=== PATIENT | male | born 1935 | race Caucasian/White ===

== ENCOUNTER 2017-12-03 23:08 | Inpatient (IN) ==
[2017-12-03] MEDS ORDERED: DEXTROSE 50% 25 GM/50 ML SYRINGE IV ONE (23:18)
[2017-12-03] MEDS ORDERED: SODIUM CHLORIDE 0.9% 2,000 ML IV STA (23:25)
[2017-12-03] MEDS ORDERED: hydrALAZINE 20 MG/1 ML VIAL IV STA (23:44)
[2017-12-03] MEDS ORDERED: LABETALOL 20 MG/4 ML SYRINGE IV STA (23:44)
[2017-12-03] MEDS ORDERED: LABETALOL 20 MG/4 ML SYRINGE IV ONE (23:52)
[2017-12-03] MEDS ORDERED: hydrALAZINE 20 MG/1 ML VIAL ONE (23:52)
[2017-12-03 23:54] LABS: Basophils % 0.1 % (0.0-0.8); Hematocrit 34.5 VOL% (42.0-52.0); Hemoglobin 10.8 GM/DL (14.0-18.0); Immature Granulocytes % 1.2 %; Immature Granulocytes Absolute 0.21 #; Lymphocytes # 0.7 10*3/uL (1.4-4.0); Mean Corpuscular HGB Conc 31.3 GM/DL (32-36); Mean Corpuscular Hemoglobin 27 PG (27-34); Mean Platelet Volume 10.6 FL (9.6-12.0); Monocytes # 0.4 10*3/uL (0.11-0.8); Monocytes % 2.4 % (1.7-12.7); Neutrophils # 16.1 10*3/uL (1.4-7.4); Neutrophils % 92.3 % (38.7-73.9); Platelet Count 261 T/CUMM (130-400); Red Blood Count 4.06 MC/CUMM (3.8-5.5); Red Cell Distribution Width 16.5 % (9.3-17.3); White Blood Count 17.4 T/CUMM (4-12)
[2017-12-03 23:55] LABS: VBG Base Excess -8.2 MEQ/L (0-4); VBG HCO3 17.4 MEQ/L (24-28); VBG Oxygen Saturation 86.7 %; VBG PCO2 36.1 MMHG (41-51); VBG PH 7.302; VBG PO2 66.6 MMHG (17-40)
[2017-12-04 00:04] LABS: Apearance,Urine Slightly Hazy (Clear); Bacteria,Urine Occasional /HPF (Few); Bilirubin,Urine Negative (Negative); Blood, Urine Moderate mg/dL (Negative); Glucose,Urine (UA) 150 mg/dL (Negative); Hyaline Casts,Urine 1 /LPF (0-3); Ketones,Urine Negative (Negative); Mucus,Urine Occasional /LPF (Occasional); Nitrite,Urine Negative (Negative); PT Patient Result 10.8 SECS; Partial Thromboplastin Time 28.7 SECS (0-40); Protein,Urine >=500 MG/DL; RBC,Urine 12 /HPF (0-4); Squamous Epithelial Cell,Urine Occasional /HPF (0-10); Urine Color Yellow (Yellow); Urine Specific Gravity 1.016 (1.001-1.035); Urine Urobilinogen < 2.0 EU/DL (0.2-1.0); WBC,Urine 6 /HPF (0-6)
[2017-12-04 00:06] LABS: Barbiturates Screen,Urine Negative (Negative); Benzodiazepines Screen,Urine Negative (Negative); Cannabinoid Screen,Urine Negative (Negative); Opiate Screen,Urine Negative (Negative); Phencyclidine Screen,Urine Negative (Negative)
[2017-12-04 00:08] LABS: Ammonia 16 UMOL/L (11-32)
[2017-12-04 00:12] LABS: Band Neutrophils 1 % (0-10); Lymphocytes 4 % (20-55); Platelet Estimate Normal; Segmented Neutrophils 93 % (50-85); Total Cells Counted 100
[2017-12-04 00:13] LABS: Lactic Acid 3.1 MMOL/L (0.4-2.0)
[2017-12-04 00:14] LABS: Alanine Aminotransferase 20 U/L (16-61); Albumin 2.3 G/DL (3.4-5.0); Alkaline Phosphatase 85 U/L (45-117); Aspartate Amino Transferase 48 U/L (0-37); Bilirubin,Total < 0.39 MG/DL (0.2-1.0); Blood Urea Nitrogen 82 MG/DL (7-18); Glucose 61 MG/DL (74-106); Osmolality,Calculated 321.9 MOS/KG (273-304); Potassium 4.5 MMOL/L (3.5-5.1); Sodium 151 MMOL/L (136-145); Total Protein 6.2 G/DL (6.4-8.3); Troponin I Only 0.262 NG/ML (0.00-0.045)
[2017-12-04] MEDS ORDERED: CEFEPIME 2,000 MG in SODIUM CHLORIDE 0.9% 100 ML IV STA (00:23)
[2017-12-04] MEDS ORDERED: SODIUM CHLORIDE 0.9% 1,000 ML IV STA (00:23)
[2017-12-04] MEDS ORDERED: VANCOMYCIN INJ 1,000 MG in SODIUM CHLORIDE 0.9% 250 ML IV STA (00:24)
[2017-12-04] MEDS ORDERED: NOREPINEPHRINE 8 MG in SODIUM CHLORIDE 0.9% 242 ML IV SCH (01:00)
[2017-12-04] MEDS ORDERED: CEFEPIME 2,000 MG VIAL ONE (01:20)
[2017-12-04] MEDS ORDERED: VANCOMYCIN 1,000 MG VIAL ONE (01:21)
[2017-12-04] MEDS ORDERED: GLUCAGON 1 MG VIAL IM PRN ×2 (02:25)
[2017-12-04] MEDS ORDERED: ALBUTEROL 2.5 MG/3 ML NEB RESP TX PRN (02:25)
[2017-12-04] MEDS ORDERED: hydrALAZINE 20 MG/1 ML VIAL IV PRN (02:25)
[2017-12-04] MEDS ORDERED: ONDANSETRON 4 MG/2 ML VIAL IV PRN (02:25)
[2017-12-04] MEDS ORDERED: DEXTROSE 50% 25 GM/50 ML VIAL IV PRN ×2 (02:25)
[2017-12-04] MEDS ORDERED: SODIUM CHLORIDE 0.45% 1,000 ML IV SCH (02:30)
[2017-12-04] MEDS ORDERED: DEXTROSE 50% 25 GM/50 ML SYRINGE IV ONE (03:13)
[2017-12-04] MEDS ORDERED: ALBUTEROL/IPRATROPIUM 3 ML NEB RESP TX PRN (03:51)
[2017-12-04] MEDS ORDERED: FUROSEMIDE 40 MG/4 ML VIAL IV ONE (04:00)
[2017-12-04] MEDS: PANTOPRAZOLE 40 MG VIAL IV SCH (04:07)
[2017-12-04] MEDS: PIPERACILLIN/TAZOBACTAM 3,375 MG in SODIUM CHLORIDE 0.9% 100 ML IV SCH ×3 (04:07→18:23)
[2017-12-04 04:26] LABS: ABG Base Excess -8.3 MMOL/L (-2.5-2.5); ABG HCO3 17.7 MMOL/L (20-26); ABG PCO2 24.2 MM HG (35-48); ABG PH 7.407 (7.35-7.45); ABG PO2 65.5 MM HG (80-95); ABG TCO2 13.9 MMOL/L (23-27)
[2017-12-04] MEDS ORDERED: NOREPINEPHRINE 4 MG/4 ML VIAL IV ONE (06:01)
[2017-12-04] MEDS: DEXTROSE 10% 1,000 ML IV SCH (06:10)
[2017-12-04 07:09] LABS: Basophils % 0.1 % (0.0-0.8); Hematocrit 31.3 VOL% (42.0-52.0); Hemoglobin 10.3 GM/DL (14.0-18.0); Immature Granulocytes Absolute 0.15 #; Lymphocytes # 0.9 10*3/uL (1.4-4.0); Lymphocytes % 5.7 % (21.2-54.2); Mean Corpuscular HGB Conc 32.9 GM/DL (32-36); Mean Corpuscular Hemoglobin 27 PG (27-34); Mean Corpuscular Volume 82.4 FL (87-102); Mean Platelet Volume 10.3 FL (9.6-12.0); Monocytes # 0.5 10*3/uL (0.11-0.8); Neutrophils % 90.2 % (38.7-73.9); Platelet Count 178 T/CUMM (130-400); White Blood Count 15.5 T/CUMM (4-12)
[2017-12-04 07:43] LABS: Lactic Acid 1.6 MMOL/L (0.4-2.0)
[2017-12-04 07:44] LABS: Bilirubin,Total 0.5 MG/DL (0.2-1.0); Calcium 7.5 MG/DL (8.5-10.1); Osmolality,Calculated 321.9 MOS/KG (273-304); Potassium 4.2 MMOL/L (3.5-5.1); Total Protein 5.4 G/DL (6.4-8.3)
[2017-12-04 08:02] LABS: Troponin I Only 0.739 NG/ML (0.00-0.045)
[2017-12-04] MEDS: INSULIN REGULAR 100 UNIT/ML SUBCUT SCH ×4 (08:44→20:03)
[2017-12-04] MEDS: ENOXAPARIN 30 MG/0.3 ML SYRINGE SUBCUT SCH (09:48)
[2017-12-04 11:56] LABS: CKMB % 1.7 %
[2017-12-04 11:59] LABS: Troponin I Only 1.38 NG/ML (0.00-0.045)
[2017-12-04] MEDS: METOPROLOL SUCCINATE XL 25 MG TABLET PO SCH (16:57)
[2017-12-04] MEDS: ASPIRIN CHEW 81 MG TABLET PO SCH (17:39)
[2017-12-04] MEDS: amLODIPine 5 MG TABLET PO SCH (17:39)
[2017-12-05] MEDS: PANTOPRAZOLE 40 MG VIAL IV SCH (02:45)
[2017-12-05] MEDS: PIPERACILLIN/TAZOBACTAM 3,375 MG in SODIUM CHLORIDE 0.9% 100 ML IV SCH ×3 (02:48→18:17)
[2017-12-05 05:26] LABS: Basophils # 0.1 10*3/uL (0.0-0.2); Basophils % 0.4 % (0.0-0.8); Eosinophils # 0.1 10*3/uL (0.0-0.87); Eosinophils % 0.9 % (0.00-10.9); Hematocrit 31.4 VOL% (42.0-52.0); Hemoglobin 9.8 GM/DL (14.0-18.0); Immature Granulocytes % 0.8 %; Lymphocytes # 1.5 10*3/uL (1.4-4.0); Lymphocytes % 12.2 % (21.2-54.2); Mean Corpuscular HGB Conc 31.2 GM/DL (32-36); Mean Corpuscular Hemoglobin 27 PG (27-34); Mean Corpuscular Volume 85.6 FL (87-102); Mean Platelet Volume 9.8 FL (9.6-12.0); Monocytes # 0.7 10*3/uL (0.11-0.8); Monocytes % 6.2 % (1.7-12.7); Neutrophils # 9.5 10*3/uL (1.4-7.4); Neutrophils % 79.5 % (38.7-73.9); Platelet Count 173 T/CUMM (130-400); Red Blood Count 3.67 MC/CUMM (3.8-5.5); Red Cell Distribution Width 17.2 % (9.3-17.3)
[2017-12-05 05:59] LABS: Calcium 7.8 MG/DL (8.5-10.1); Osmolality,Calculated 328.6 MOS/KG (273-304); Potassium 3.8 MMOL/L (3.5-5.1)
[2017-12-05] MEDS: DEXTROSE 10% 1,000 ML IV SCH (06:41)
[2017-12-05] MEDS: INSULIN REGULAR 100 UNIT/ML SUBCUT SCH ×5 (07:31→20:55)
[2017-12-05] MEDS: amLODIPine 5 MG TABLET PO SCH (09:05)
[2017-12-05] MEDS: ENOXAPARIN 30 MG/0.3 ML SYRINGE SUBCUT SCH (09:05)
[2017-12-05] MEDS: METOPROLOL SUCCINATE XL 25 MG TABLET PO SCH (09:05)
[2017-12-05] MEDS: ASPIRIN CHEW 81 MG TABLET PO SCH (09:05)
[2017-12-05] MEDS: CARVEDILOL 3.125 MG TABLET PO SCH ×2 (12:31→16:53)
[2017-12-05] MEDS ORDERED: VANCOMYCIN INJ 1,250 MG in SODIUM CHLORIDE 0.9% 250 ML IV SCH (22:00)
[2017-12-06] MEDS: PIPERACILLIN/TAZOBACTAM 3,375 MG in SODIUM CHLORIDE 0.9% 100 ML IV SCH ×3 (03:05→18:40)
[2017-12-06 04:11] LABS: Basophils % 0.4 % (0.0-0.8); Eosinophils # 0.2 10*3/uL (0.0-0.87); Eosinophils % 1.6 % (0.00-10.9); Hematocrit 29.7 VOL% (42.0-52.0); Hemoglobin 9.1 GM/DL (14.0-18.0); Immature Granulocytes % 0.7 %; Immature Granulocytes Absolute 0.07 #; Lymphocytes # 0.9 10*3/uL (1.4-4.0); Mean Corpuscular HGB Conc 30.6 GM/DL (32-36); Mean Corpuscular Hemoglobin 27 PG (27-34); Mean Corpuscular Volume 87.1 FL (87-102); Mean Platelet Volume 10.6 FL (9.6-12.0); Monocytes # 0.6 10*3/uL (0.11-0.8); Monocytes % 5.8 % (1.7-12.7); Neutrophils # 8.3 10*3/uL (1.4-7.4); Neutrophils % 82.5 % (38.7-73.9); Platelet Count 161 T/CUMM (130-400); Red Blood Count 3.41 MC/CUMM (3.8-5.5); Red Cell Distribution Width 17.1 % (9.3-17.3); White Blood Count 10.1 T/CUMM (4-12)
[2017-12-06 04:33] LABS: Calcium 7.4 MG/DL (8.5-10.1); Osmolality,Calculated 336.2 MOS/KG (273-304)
[2017-12-06] MEDS: amLODIPine 5 MG TABLET PO SCH (09:12)
[2017-12-06] MEDS: CARVEDILOL 3.125 MG TABLET PO SCH ×2 (09:12→16:47)
[2017-12-06] MEDS: ASPIRIN CHEW 81 MG TABLET PO SCH (09:12)
[2017-12-06] MEDS: PANTOPRAZOLE 40 MG VIAL IV SCH (09:13)
[2017-12-06] MEDS: ENOXAPARIN 30 MG/0.3 ML SYRINGE SUBCUT SCH (09:13)
[2017-12-06] MEDS: INSULIN REGULAR 100 UNIT/ML SUBCUT SCH ×4 (09:13→21:04)
[2017-12-06] MEDS: DEXTROSE 5% 1,000 ML IV SCH (15:23)
[2017-12-06] MEDS: SODIUM BICARBONATE 650 MG TABLET PO SCH (21:04)
[2017-12-07] MEDS: PIPERACILLIN/TAZOBACTAM 3,375 MG in SODIUM CHLORIDE 0.9% 100 ML IV SCH ×2 (03:17→23:04)
[2017-12-07 05:25] LABS: Basophils % 0.2 % (0.0-0.8); Eosinophils # 0.1 10*3/uL (0.0-0.87); Eosinophils % 0.7 % (0.00-10.9); Hematocrit 31.3 VOL% (42.0-52.0); Hemoglobin 9.6 GM/DL (14.0-18.0); Immature Granulocytes % 0.8 %; Immature Granulocytes Absolute 0.08 #; Lymphocytes % 9.7 % (21.2-54.2); Mean Corpuscular HGB Conc 30.7 GM/DL (32-36); Mean Corpuscular Hemoglobin 27 PG (27-34); Mean Corpuscular Volume 86.9 FL (87-102); Mean Platelet Volume 10.3 FL (9.6-12.0); Monocytes # 0.6 10*3/uL (0.11-0.8); Monocytes % 5.4 % (1.7-12.7); Neutrophils # 8.5 10*3/uL (1.4-7.4); Neutrophils % 83.2 % (38.7-73.9); Platelet Count 161 T/CUMM (130-400); Red Cell Distribution Width 17.2 % (9.3-17.3); White Blood Count 10.2 T/CUMM (4-12)
[2017-12-07 05:46] LABS: Calcium 7.5 MG/DL (8.5-10.1); Osmolality,Calculated 341.9 MOS/KG (273-304); Potassium 3.7 MMOL/L (3.5-5.1)
[2017-12-07] MEDS: ASPIRIN CHEW 81 MG TABLET PO SCH (08:22)
[2017-12-07] MEDS: PANTOPRAZOLE 40 MG VIAL IV SCH (08:22)
[2017-12-07] MEDS: SODIUM BICARBONATE 650 MG TABLET PO SCH ×2 (08:22→22:59)
[2017-12-07] MEDS: amLODIPine 5 MG TABLET PO SCH (08:22)
[2017-12-07] MEDS: ENOXAPARIN 30 MG/0.3 ML SYRINGE SUBCUT SCH (08:22)
[2017-12-07] MEDS: CARVEDILOL 3.125 MG TABLET PO SCH ×2 (08:22→16:39)
[2017-12-07] MEDS: INSULIN REGULAR 100 UNIT/ML SUBCUT SCH ×4 (08:22→23:00)
[2017-12-07] MEDS ORDERED: VANCOMYCIN INJ 1,250 MG in SODIUM CHLORIDE 0.9% 250 ML IV PRN (10:00)
[2017-12-07] MEDS ORDERED: TUBERCULIN SKIN TEST 0.1 ML SYRINGE INTRADERM ONE (11:00)
[2017-12-07] MEDS ORDERED: DESMOPRESSIN 10 MCG NASAL SPRAY 5 ML BOTTLE ONE NARE SCH (11:00)
[2017-12-07] MEDS ORDERED: VANCOMYCIN INJ 1,250 MG in SODIUM CHLORIDE 0.9% 250 ML IV ONE (11:00)
[2017-12-07] MEDS: DEXTROSE 5% 1,000 ML IV SCH ×2 (11:57→23:00)
[2017-12-08] MEDS: DEXTROSE 5% 1,000 ML IV SCH ×3 (03:38→17:30)
[2017-12-08 05:58] LABS: Calcium 7.6 MG/DL (8.5-10.1); Osmolality,Calculated 340.7 MOS/KG (273-304)
[2017-12-08 06:25] LABS: Basophils % 0.3 % (0.0-0.8); Eosinophils # 0.2 10*3/uL (0.0-0.87); Eosinophils % 1.8 % (0.00-10.9); Hematocrit 34.2 VOL% (42.0-52.0); Hemoglobin 10.7 GM/DL (14.0-18.0); Immature Granulocytes % 1.3 %; Immature Granulocytes Absolute 0.15 #; Lymphocytes # 1.2 10*3/uL (1.4-4.0); Lymphocytes % 10.4 % (21.2-54.2); Mean Corpuscular HGB Conc 31.3 GM/DL (32-36); Mean Corpuscular Hemoglobin 27 PG (27-34); Mean Platelet Volume 11.4 FL (9.6-12.0); Monocytes # 0.6 10*3/uL (0.11-0.8); Monocytes % 5.3 % (1.7-12.7); NRBC # 0.06 10*3/uL; Neutrophils # 9.1 10*3/uL (1.4-7.4); Neutrophils % 80.9 % (38.7-73.9); Platelet Count 138 T/CUMM (130-400); Red Blood Count 3.93 MC/CUMM (3.8-5.5); Red Cell Distribution Width 17.3 % (9.3-17.3); White Blood Count 11.3 T/CUMM (4-12)
[2017-12-08] MEDS: amLODIPine 5 MG TABLET PO SCH (09:05)
[2017-12-08] MEDS: PIPERACILLIN/TAZOBACTAM 3,375 MG in SODIUM CHLORIDE 0.9% 100 ML IV SCH (09:05)
[2017-12-08] MEDS: SODIUM BICARBONATE 650 MG TABLET PO SCH ×3 (09:05→22:23)
[2017-12-08] MEDS: CARVEDILOL 3.125 MG TABLET PO SCH ×2 (09:05→16:16)
[2017-12-08] MEDS: PANTOPRAZOLE 40 MG VIAL IV SCH (09:05)
[2017-12-08] MEDS: ENOXAPARIN 30 MG/0.3 ML SYRINGE SUBCUT SCH (09:05)
[2017-12-08] MEDS: INSULIN REGULAR 100 UNIT/ML SUBCUT SCH ×4 (09:05→22:25)
[2017-12-08] MEDS: ASPIRIN CHEW 81 MG TABLET PO SCH (09:05)
[2017-12-08] MEDS ORDERED: LEVOFLOXACIN 750 MG TABLET PO ONE (15:00)
[2017-12-09] MEDS: DEXTROSE 5% 1,000 ML IV SCH ×4 (02:42→22:28)
[2017-12-09 07:01] LABS: Basophils % 0.3 % (0.0-0.8); Eosinophils # 0.3 10*3/uL (0.0-0.87); Eosinophils % 3.8 % (0.00-10.9); Hematocrit 28.9 VOL% (42.0-52.0); Immature Granulocytes % 2.1 %; Immature Granulocytes Absolute 0.18 #; Lymphocytes # 1.1 10*3/uL (1.4-4.0); Lymphocytes % 13.1 % (21.2-54.2); Mean Corpuscular HGB Conc 29.8 GM/DL (32-36); Mean Corpuscular Hemoglobin 26 PG (27-34); Mean Corpuscular Volume 88.1 FL (87-102); Mean Platelet Volume 10.6 FL (9.6-12.0); Monocytes # 0.4 10*3/uL (0.11-0.8); Monocytes % 4.6 % (1.7-12.7); Neutrophils # 6.6 10*3/uL (1.4-7.4); Neutrophils % 76.1 % (38.7-73.9); Platelet Count 131 T/CUMM (130-400); Red Blood Count 3.28 MC/CUMM (3.8-5.5); Red Cell Distribution Width 17.1 % (9.3-17.3); White Blood Count 8.7 T/CUMM (4-12)
[2017-12-09 07:12] LABS: Hemoglobin 8.6 GM/DL (14.0-18.0)
[2017-12-09 07:38] LABS: Alanine Aminotransferase 27 U/L (16-61); Albumin 1.5 G/DL (3.4-5.0); Alkaline Phosphatase 71 U/L (45-117); Aspartate Amino Transferase 23 U/L (0-37); Bilirubin,Total < 0.39 MG/DL (0.2-1.0); Blood Urea Nitrogen 73 MG/DL (7-18); Calcium 7.5 MG/DL (8.5-10.1); Glucose 154 MG/DL (74-106); Osmolality,Calculated 336.9 MOS/KG (273-304); Potassium 3.5 MMOL/L (3.5-5.1); Sodium 158 MMOL/L (136-145); Total Protein 4.7 G/DL (6.4-8.3)
[2017-12-09] MEDS: INSULIN REGULAR 100 UNIT/ML SUBCUT SCH ×4 (09:28→21:35)
[2017-12-09] MEDS: amLODIPine 5 MG TABLET PO SCH (09:29)
[2017-12-09] MEDS: ASPIRIN CHEW 81 MG TABLET PO SCH (09:29)
[2017-12-09] MEDS: CARVEDILOL 3.125 MG TABLET PO SCH ×2 (09:29→16:14)
[2017-12-09] MEDS: SODIUM BICARBONATE 650 MG TABLET PO SCH ×3 (09:29→21:33)
[2017-12-09] MEDS: PANTOPRAZOLE 40 MG VIAL IV SCH (09:30)
[2017-12-09] MEDS: MUPIROCIN 2% OINT 22 GM TUBE TOP SCH (21:35)
[2017-12-10] MEDS: INSULIN REGULAR 100 UNIT/ML SUBCUT SCH ×4 (09:22→21:41)
[2017-12-10] MEDS: SODIUM BICARBONATE 650 MG TABLET PO SCH ×3 (09:23→21:41)
[2017-12-10] MEDS: CARVEDILOL 3.125 MG TABLET PO SCH ×2 (09:24→17:27)
[2017-12-10] MEDS: DEXTROSE 5% 1,000 ML IV SCH ×2 (09:24→16:50)
[2017-12-10] MEDS: PANTOPRAZOLE 40 MG VIAL IV SCH (09:25)
[2017-12-10] MEDS: MUPIROCIN 2% OINT 22 GM TUBE TOP SCH ×2 (09:25→21:42)
[2017-12-10] MEDS: ASPIRIN CHEW 81 MG TABLET PO SCH (09:25)
[2017-12-10] MEDS: LEVOFLOXACIN 500 MG TABLET PO SCH (09:25)
[2017-12-10] MEDS: amLODIPine 5 MG TABLET PO SCH (09:25)
[2017-12-11] MEDS: DEXTROSE 5% 1,000 ML IV SCH ×5 (03:30→23:45)
[2017-12-11 07:57] LABS: Basophils % 0.2 % (0.0-0.8); Eosinophils # 0.4 10*3/uL (0.0-0.87); Hematocrit 25.7 VOL% (42.0-52.0); Hemoglobin 7.9 GM/DL (14.0-18.0); Immature Granulocytes % 3.1 %; Immature Granulocytes Absolute 0.26 #; Lymphocytes # 1.2 10*3/uL (1.4-4.0); Lymphocytes % 14.2 % (21.2-54.2); Mean Corpuscular HGB Conc 30.7 GM/DL (32-36); Mean Corpuscular Hemoglobin 27 PG (27-34); Mean Corpuscular Volume 86.8 FL (87-102); Mean Platelet Volume 11.7 FL (9.6-12.0); Monocytes # 0.4 10*3/uL (0.11-0.8); Monocytes % 5.2 % (1.7-12.7); Neutrophils # 6.2 10*3/uL (1.4-7.4); Neutrophils % 72.3 % (38.7-73.9); Platelet Count 110 T/CUMM (130-400); Red Blood Count 2.96 MC/CUMM (3.8-5.5); Red Cell Distribution Width 15.9 % (9.3-17.3); White Blood Count 8.5 T/CUMM (4-12)
[2017-12-11 08:27] LABS: Albumin 1.4 G/DL (3.4-5.0); Bilirubin,Total 0.4 MG/DL (0.2-1.0); Calcium 6.9 MG/DL (8.5-10.1); Osmolality,Calculated 310.8 MOS/KG (273-304); Potassium 3.3 MMOL/L (3.5-5.1); Total Protein 4.6 G/DL (6.4-8.3)
[2017-12-11 08:28] LABS: Potassium 3.4 MMOL/L (3.5-5.1); Prealbumin 13.5 MG/DL (20-40)
[2017-12-11] MEDS: INSULIN REGULAR 100 UNIT/ML SUBCUT SCH ×4 (08:55→21:18)
[2017-12-11 09:35] LABS: Albumin 1.5 G/DL (3.4-5.0); Calcium 7.1 MG/DL (8.5-10.1); Osmolality,Calculated 305.3 MOS/KG (273-304); Potassium 3.5 MMOL/L (3.5-5.1)
[2017-12-11] MEDS: SODIUM BICARBONATE 650 MG TABLET PO SCH ×3 (09:46→21:18)
[2017-12-11] MEDS: ASPIRIN CHEW 81 MG TABLET PO SCH (09:46)
[2017-12-11] MEDS: PANTOPRAZOLE 40 MG VIAL IV SCH (09:47)
[2017-12-11] MEDS: MUPIROCIN 2% OINT 22 GM TUBE TOP SCH ×2 (09:47→21:18)
[2017-12-11] MEDS: CARVEDILOL 3.125 MG TABLET PO SCH ×2 (09:47→16:21)
[2017-12-11] MEDS: amLODIPine 5 MG TABLET PO SCH (09:47)
[2017-12-12 07:23] LABS: Basophils % 0.1 % (0.0-0.8); Eosinophils # 0.3 10*3/uL (0.0-0.87); Eosinophils % 3.4 % (0.00-10.9); Hemoglobin 8.6 GM/DL (14.0-18.0); Immature Granulocytes % 2.5 %; Immature Granulocytes Absolute 0.22 #; Lymphocytes % 10.8 % (21.2-54.2); Mean Corpuscular HGB Conc 31.9 GM/DL (32-36); Mean Corpuscular Hemoglobin 27 PG (27-34); Mean Corpuscular Volume 83.6 FL (87-102); Mean Platelet Volume 11.2 FL (9.6-12.0); Monocytes # 0.5 10*3/uL (0.11-0.8); Monocytes % 5.2 % (1.7-12.7); Neutrophils # 6.9 10*3/uL (1.4-7.4); Platelet Count 94 T/CUMM (130-400); Red Blood Count 3.23 MC/CUMM (3.8-5.5); Red Cell Distribution Width 15.6 % (9.3-17.3); White Blood Count 8.9 T/CUMM (4-12)
[2017-12-12 07:43] LABS: Calcium 6.9 MG/DL (8.5-10.1); Microcytosis 1+; Osmolality,Calculated 302.7 MOS/KG (273-304); Ovalocytes Few; Platelet Estimate Decreased; Potassium 3.6 MMOL/L (3.5-5.1)
[2017-12-12 07:45] LABS: Hypochromasia 1+
[2017-12-12] MEDS: INSULIN REGULAR 100 UNIT/ML SUBCUT SCH ×4 (09:24→21:19)
[2017-12-12] MEDS: amLODIPine 5 MG TABLET PO SCH (09:25)
[2017-12-12] MEDS: SODIUM BICARBONATE 650 MG TABLET PO SCH ×3 (09:25→21:19)
[2017-12-12] MEDS: LEVOFLOXACIN 500 MG TABLET PO SCH (09:25)
[2017-12-12] MEDS: CARVEDILOL 3.125 MG TABLET PO SCH ×2 (09:25→16:43)
[2017-12-12] MEDS: PANTOPRAZOLE 40 MG VIAL IV SCH (09:25)
[2017-12-12] MEDS: MUPIROCIN 2% OINT 22 GM TUBE TOP SCH ×2 (09:30→21:19)
[2017-12-12] MEDS: DEXTROSE 5% 1,000 ML IV SCH (16:03)
[2017-12-13] MEDS: DEXTROSE 5% 1,000 ML IV SCH ×5 (01:00→23:00)
[2017-12-13 05:50] LABS: Basophils % 0.2 % (0.0-0.8); Eosinophils # 0.3 10*3/uL (0.0-0.87); Eosinophils % 3.3 % (0.00-10.9); Hematocrit 25.2 VOL% (42.0-52.0); Hemoglobin 8.2 GM/DL (14.0-18.0); Immature Granulocytes Absolute 0.21 #; Lymphocytes # 0.9 10*3/uL (1.4-4.0); Lymphocytes % 9.1 % (21.2-54.2); Mean Corpuscular HGB Conc 32.5 GM/DL (32-36); Mean Corpuscular Hemoglobin 27 PG (27-34); Mean Corpuscular Volume 82.6 FL (87-102); Mean Platelet Volume 12.5 FL (9.6-12.0); Monocytes # 0.6 10*3/uL (0.11-0.8); Neutrophils # 8.2 10*3/uL (1.4-7.4); Neutrophils % 79.4 % (38.7-73.9); Platelet Count 108 T/CUMM (130-400); Red Blood Count 3.05 MC/CUMM (3.8-5.5); Red Cell Distribution Width 15.4 % (9.3-17.3); White Blood Count 10.3 T/CUMM (4-12)
[2017-12-13] MEDS ORDERED: FUROSEMIDE 40 MG/4 ML VIAL IV PRN (08:33)
[2017-12-13] MEDS ORDERED: SODIUM CHLORIDE 0.9% 1,000 ML IV PRN (08:33)
[2017-12-13] MEDS: amLODIPine 5 MG TABLET PO SCH (09:23)
[2017-12-13] MEDS: INSULIN REGULAR 100 UNIT/ML SUBCUT SCH ×4 (09:23→21:05)
[2017-12-13] MEDS: CARVEDILOL 3.125 MG TABLET PO SCH ×2 (09:23→17:11)
[2017-12-13] MEDS: MUPIROCIN 2% OINT 22 GM TUBE TOP SCH ×2 (09:24→21:05)
[2017-12-13] MEDS: SODIUM BICARBONATE 650 MG TABLET PO SCH ×3 (09:24→21:05)
[2017-12-13] MEDS: PANTOPRAZOLE 40 MG VIAL IV SCH (09:24)
[2017-12-14] MEDS ORDERED: ceFAZolin 1,000 MG in SYRINGE 1 EACH IV ONE (06:00)
[2017-12-14 06:34] LABS: Basophils % 0.2 % (0.0-0.8); Eosinophils # 0.3 10*3/uL (0.0-0.87); Hematocrit 27.7 VOL% (42.0-52.0); Hemoglobin 9.1 GM/DL (14.0-18.0); Immature Granulocytes % 2.7 %; Immature Granulocytes Absolute 0.27 #; Lymphocytes # 0.9 10*3/uL (1.4-4.0); Lymphocytes % 9.5 % (21.2-54.2); Mean Corpuscular HGB Conc 32.9 GM/DL (32-36); Mean Corpuscular Hemoglobin 27 PG (27-34); Mean Corpuscular Volume 81.7 FL (87-102); Monocytes # 0.6 10*3/uL (0.11-0.8); Monocytes % 6.5 % (1.7-12.7); Neutrophils # 7.7 10*3/uL (1.4-7.4); Neutrophils % 78.1 % (38.7-73.9); Platelet Count 116 T/CUMM (130-400); Red Blood Count 3.39 MC/CUMM (3.8-5.5); Red Cell Distribution Width 15.4 % (9.3-17.3); White Blood Count 9.8 T/CUMM (4-12)
[2017-12-14 07:11] LABS: Calcium 7.3 MG/DL (8.5-10.1); Osmolality,Calculated 300.5 MOS/KG (273-304); Potassium 3.6 MMOL/L (3.5-5.1)
[2017-12-14 07:13] LABS: Albumin 1.3 G/DL (3.4-5.0); Bilirubin,Total 0.6 MG/DL (0.2-1.0); Calcium 7.3 MG/DL (8.5-10.1); Osmolality,Calculated 299.7 MOS/KG (273-304); Potassium 3.6 MMOL/L (3.5-5.1); Total Protein 4.8 G/DL (6.4-8.3)
[2017-12-14] MEDS: INSULIN REGULAR 100 UNIT/ML SUBCUT SCH ×4 (08:31→23:10)
[2017-12-14] MEDS: MUPIROCIN 2% OINT 22 GM TUBE TOP SCH ×2 (08:32→20:16)
[2017-12-14] MEDS: amLODIPine 5 MG TABLET PO SCH (08:32)
[2017-12-14] MEDS: CARVEDILOL 3.125 MG TABLET PO SCH ×2 (08:32→16:33)
[2017-12-14] MEDS: PANTOPRAZOLE 40 MG VIAL IV SCH (08:32)
[2017-12-14] MEDS: LEVOFLOXACIN 500 MG TABLET PO SCH (08:33)
[2017-12-14] MEDS: SODIUM BICARBONATE 650 MG TABLET PO SCH ×3 (08:33→20:15)
[2017-12-14] MEDS ORDERED: PROPOFOL 200 MG/20 ML VIAL IV ONE (13:45)
[2017-12-14] MEDS ORDERED: LIDOCAINE 2% 5 ML VIAL ONE (13:45)
[2017-12-14] MEDS: DEXTROSE 5% 1,000 ML IV SCH ×4 (15:00→23:20)
[2017-12-14] MEDS: INSULIN NPH/REGULAR 70/30 100 UNIT/ML SUBCUT SCH (16:42)
[2017-12-15] MEDS ORDERED: LORazepam 0.5 MG TABLET PEG PRN (06:55)
[2017-12-15 08:05] LABS: Basophils % 0.3 % (0.0-0.8); Eosinophils # 0.3 10*3/uL (0.0-0.87); Eosinophils % 2.8 % (0.00-10.9); Hematocrit 27.5 VOL% (42.0-52.0); Hemoglobin 9.2 GM/DL (14.0-18.0); Immature Granulocytes Absolute 0.19 #; Lymphocytes # 0.9 10*3/uL (1.4-4.0); Lymphocytes % 9.5 % (21.2-54.2); Mean Corpuscular HGB Conc 33.5 GM/DL (32-36); Mean Corpuscular Hemoglobin 27 PG (27-34); Mean Corpuscular Volume 81.6 FL (87-102); Mean Platelet Volume 12.2 FL (9.6-12.0); Monocytes # 0.6 10*3/uL (0.11-0.8); Monocytes % 6.6 % (1.7-12.7); Neutrophils # 7.5 10*3/uL (1.4-7.4); Neutrophils % 78.8 % (38.7-73.9); Platelet Count 140 T/CUMM (130-400); Red Blood Count 3.37 MC/CUMM (3.8-5.5); Red Cell Distribution Width 15.4 % (9.3-17.3); White Blood Count 9.5 T/CUMM (4-12)
[2017-12-15 08:30] LABS: Calcium 7.5 MG/DL (8.5-10.1); Osmolality,Calculated 309.1 MOS/KG (273-304); Potassium 3.7 MMOL/L (3.5-5.1)
[2017-12-15] MEDS: INSULIN REGULAR 100 UNIT/ML SUBCUT SCH ×4 (10:03→21:25)
[2017-12-15] MEDS: SODIUM BICARBONATE 650 MG TABLET PO SCH ×3 (10:04→21:08)
[2017-12-15] MEDS: ASPIRIN CHEW 81 MG TABLET PO SCH (10:04)
[2017-12-15] MEDS: INSULIN NPH/REGULAR 70/30 100 UNIT/ML SUBCUT SCH ×2 (10:04→16:49)
[2017-12-15] MEDS: LANSOPRAZOLE ODT 30 MG TABLET PEG SCH (10:05)
[2017-12-15] MEDS: CARVEDILOL 3.125 MG TABLET PO SCH ×2 (10:05→16:34)
[2017-12-15] MEDS: amLODIPine 5 MG TABLET PO SCH (10:05)
[2017-12-15] MEDS: MUPIROCIN 2% OINT 22 GM TUBE TOP SCH ×2 (10:06→21:08)
[2017-12-15] MEDS: ZINC OXIDE PASTE 113 GM TUBE TOP SCH ×2 (12:10→21:08)
[2017-12-15] MEDS: DEXTROSE 5% 1,000 ML IV SCH (12:41)
[2017-12-16 06:58] LABS: Calcium 7.4 MG/DL (8.5-10.1); Osmolality,Calculated 317.8 MOS/KG (273-304)
[2017-12-16 08:09] VITALS: BP 144/62
[2017-12-16] MEDS: INSULIN NPH/REGULAR 70/30 100 UNIT/ML SUBCUT SCH (09:27)
[2017-12-16] MEDS: CARVEDILOL 3.125 MG TABLET PO SCH (09:28)
[2017-12-16] MEDS: ZINC OXIDE PASTE 113 GM TUBE TOP SCH (09:28)
[2017-12-16] MEDS: SODIUM BICARBONATE 650 MG TABLET PO SCH (09:28)
[2017-12-16] MEDS: amLODIPine 5 MG TABLET PO SCH (09:28)
[2017-12-16] MEDS: LANSOPRAZOLE ODT 30 MG TABLET PEG SCH (09:28)
[2017-12-16] MEDS: MUPIROCIN 2% OINT 22 GM TUBE TOP SCH (09:28)
[2017-12-16] MEDS: ASPIRIN CHEW 81 MG TABLET PO SCH (09:28)
[2017-12-16] MEDS: INSULIN REGULAR 100 UNIT/ML SUBCUT SCH ×2 (09:30→11:44)
== END 2017-12-16 12:04 | DRG 871 ==
LOC: EDBD → EDSEX → EDUNIT# → N.ED 23:08 → N.EDINP 12-04 02:27 → SUATTDRO 12-04 02:27 → N.ICU 12-04 02:56 → N.2E 12-05 12:59
PROVIDERS: ADMIT Internal Medicine; ATTEND Internal Medicine
PROC: EGDWPEG (ICD-10-PCS; 2017-12-14 09:05)